=== PATIENT | female | born 1940 | race Native Hawaiian/Other Pacific Islander ===

== ENCOUNTER 2016-04-23 23:40 | Inpatient (IN) | payer OTHER ==
[~2016-04-23] VITALS: Ht 162.6 cm; Wt 98.1 kg
[~2016-04-23 23:40] MED LIST: ACET-689 PO; ALLERGY REL10 MG PO; ASA LO-DOSE81 MG OR; DULCOLAX5 MG PO; FENOFIBRATE43 MG OR; FISH OIL1 C10 PO; FLUC100T3 PO; INDOMETHACIN50 MG PO; LISI5TAB10 PO; LISITAB PO; MECLIZINE25 MG OR; METF500T PO; OMEP40CA PO; ONDA4TAB3 PO; PREDNISOLONE1 % OP; SIMV40TA57; SIMV40TA57 PO; STOOL SOFTENER1 TA2 PO; TERC0.4C VA; VITAMIN D31000 UNIT OR; VITAMIN E400 UNIT OR; [UNRECOGNIZED DRUG - OTHER]; [UNRECOGNIZED DRUG - OTHER] EX; [UNRECOGNIZED DRUG - SUPPLY] XX
[2016-04-23 23:57] VITALS: BP 115/40; TEMP 97.5
[2016-04-24] MEDS ORDERED: OMEPRAZOLE20 M1 OR (00:30)
[2016-04-24] MEDS ORDERED: AMLO2.5T PO (00:31)
[2016-04-24] MEDS ORDERED: LOFIBRA54 MG OR (00:32)
[2016-04-24 02:30] LABS: PLATELET COUNT 331 K/uL (152-353)
[2016-04-24 02:39] LABS: POTASSIUM 4.1 mmol/L (3.6-5.2)
[2016-04-24 04:00] VITALS: BP 134/42; TEMP 97.7
[2016-04-24 05:44] VITALS: BP 134/42; TEMP 97.7; Ht 162.6 cm; Wt 98.1 kg
[2016-04-24 08:16] VITALS: BP 162/53; TEMP 97.8
[2016-04-24 09:51] LABS: PLATELET COUNT 253 K/uL (152-353)
[2016-04-24 11:59] VITALS: BP 162/53; TEMP 97.8
[2016-04-24 16:14] VITALS: BP 144/47; TEMP 98.2
[2016-04-24 20:00] VITALS: BP 153/59; TEMP 98.2
[2016-04-25 01:04] VITALS: BP 139/47; TEMP 99.6
[2016-04-25 04:00] VITALS: BP 142/44; TEMP 98.3
[2016-04-25 04:58] LABS: PLATELET COUNT 209 K/uL (152-353)
[2016-04-25 05:22] LABS: POTASSIUM 4.3 mmol/L (3.6-5.2)
[2016-04-25 08:00] VITALS: BP 133/48; TEMP 98.7
[2016-04-25 12:00] VITALS: BP 149/77; TEMP 98.6
[2016-04-25 16:00] VITALS: BP 142/72; TEMP 98.6
[2016-04-25 20:17] VITALS: BP 139/48; TEMP 98
[2016-04-26 00:22] VITALS: BP 145/17; BP 145/53; TEMP 98.4
[2016-04-26] MEDS ORDERED: LOFIBRA54 MG PO (00:37)
[2016-04-26 04:00] VITALS: BP 151/48; TEMP 97.5
[2016-04-26 05:12] LABS: PLATELET COUNT 236 K/uL (152-353)
[2016-04-26 05:32] LABS: POTASSIUM 3.8 mmol/L (3.6-5.2)
[2016-04-26 08:00] VITALS: BP 160/53; TEMP 98
[2016-04-26 12:00] VITALS: BP 130/48; TEMP 97.8
[2016-04-26 16:00] VITALS: BP 148/50; TEMP 97.1
[2016-04-26 20:12] VITALS: BP 197/67; TEMP 98.4
[2016-04-27 00:06] VITALS: BP 138/50; TEMP 98.2
[2016-04-27 05:36] LABS: PLATELET COUNT 263 K/uL (152-353)
[2016-04-27 05:42] VITALS: BP 149/80; TEMP 98.2
[2016-04-27 05:59] LABS: POTASSIUM 3.1 mmol/L (3.6-5.2)
[2016-04-27 08:00] VITALS: BP 178/79; TEMP 98.5
[2016-04-27 12:00] VITALS: BP 119/45; TEMP 99.2
[2016-04-27 16:00] VITALS: BP 156/46; TEMP 98.6
[2016-04-27 20:00] VITALS: BP 139/43; TEMP 98.7
[2016-04-28 00:26] VITALS: BP 151/50; TEMP 98.5
[2016-04-28 04:00] VITALS: BP 171/58; TEMP 98.4
[2016-04-28 06:18] LABS: PLATELET COUNT 290 K/uL (152-353)
[2016-04-28 06:22] LABS: POTASSIUM 3.3 mmol/L (3.6-5.2)
[2016-04-28 08:00] VITALS: BP 157/59; TEMP 98.1
[2016-04-28 12:00] VITALS: BP 167/59; TEMP 98.2
== END 2016-04-28 13:45 | disposition home or self-care (01) | DRG 386 ==
LOC: ED 23:40 → MED/SURG 04-24 03:11
PROVIDERS: Emergency Medicine; ADMIT Specialist
DX: K51.30 Ulcerative (chronic) rectosigmoiditis without complications (principal); K92.1 Melena; E87.1 Hypo-osmolality and hyponatremia; G40.802 Other epilepsy, not intractable, without status epilepticus; D72.828 Other elevated white blood cell count; R55 Syncope and collapse; R79.89 Other specified abnormal findings of blood chemistry; E83.42 Hypomagnesemia; E11.9 Type 2 diabetes mellitus without complications
CPT/HCPCS: 36415; 80048; 80053; 82272; 82550; 82553; 82948; 83735; 84484; 85027; 87045; 87205; 87328; 87329; 87493; 87798; 87899; 96367; 96375; 99284; J0744; J1650; J2405; J3490